=== PATIENT | male | born 1985 | race Hispanic/Latino ===

== ENCOUNTER 2022-07-01 11:28 | Emergency (ER) | payer SELFPAY ==
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
[2022-07-01] MEDS ORDERED: BUPIVACAINE 0.5% PF 10 ML VIAL ONE (11:48)
[2022-07-01] MEDS ORDERED: LIDOCAINE 1% 20 ML MDV ONE (11:48)
--- NOTE | 2022-07-01 12:33 | ER ---
Nurse's Notes [facility] Name: Samy Medrano Age: 36 yrs Sex: Male : 1985 Arrival Date: 07/01/2022 Time: 11:29 Bed 13 Private MD: Diagnosis: Cutaneous laceration of the thumb Presentation: 07/01 11:39 Chief complaint: Patient states: I was cutting sheet rock and sliced my finger with the jh5 sheet rock knife. Coronavirus screen: Vaccine status: Patient reports receiving the 2nd dose of the covid vaccine. Client denies travel out of the [place] in the last 14 days. Ebola Screen: Patient negative for fever greater than or equal to 101.5 degrees Fahrenheit, and additional compatible Ebola Virus Disease symptoms Patient denies exposure to infectious person. Patient denies travel to an Ebola-affected area in the 21 days before illness onset. Initial Sepsis Screen: Does the patient meet any 2 criteria? No. Patient's initial sepsis screen is negative. Does the patient have a suspected source of infection? No. Patient's initial sepsis screen is negative. Risk Assessment: Do you want to hurt yourself or someone else? Patient reports no desire to harm self or others. 11:39 Method Of Arrival: Ambulatory [facility] 11:39 Acuity: ALAN 3 jh5 Triage Assessment: 11:43 General: Appears in no apparent distress. uncomfortable, well groomed, well developed, [facility] Behavior is calm, cooperative, appropriate for age. Pain: Complains of pain in left hand. Musculoskeletal: Reports pain in left hand. Injury Description: Laceration. Historical: - Allergies: 11:43 No Known Allergies; 5 - Immunization history:: Adult Immunizations up to date. - Social history:: Smoking status: Patient denies any tobacco usage or history of. Screenin:45 [facility] ED Fall Risk Assessment (Adult) History of falling in the last 3 months, bp including since admission No falls in past 3 months (0 pts). Abuse screen: Denies threats or abuse. Denies injuries from another. Nutritional screening: No deficits noted. Tuberculosis screening: No symptoms or risk factors identified. Assessment: 11:45 General: SEE TRIAGE NOTE. bp 12:46 Reassessment: PT DC HOME. bp Vital Signs: 11:39 BP 149 / 77; Pulse 60; Resp 16; Temp 98.6; Pulse Ox 100% ; Weight 89.81 kg; Height 5 [facility] ft. 5 in. (165.10 cm); Pain 8/10; 12:46 BP 135 / 71; Pulse 67; Resp 16; Pulse Ox 99% ; bp 11:39 Body Mass Index 32.95 (89.81 kg, 165.10 cm) [facility] ED Course: 11:29 Patient arrived in ED. am2 11:30 Micheal Garcia PA is PHCP. [facility] 11:30 Zak Shah MD is Attending Physician. [facility] 11:38 Reinaldo Bryan, RN is Primary Nurse. bp 11:43 Triage completed. [facility] 11:45 Arm band placed on. bp 11:45 Patient has correct armband on for positive identification. Bed in low position. Call bp light in reach. Side rails up X2. 12:46 No provider procedures requiring assistance completed. Patient did not have IV access bp during this emergency room visit. Administered Medications: No medications were administered Medication: 11:45 VIS not applicable for this client. bp Outcome: 12:32 Discharge ordered by . [facility] 12:46 Discharged to home ambulatory. bp 12:46 Condition: stable 12:46 Discharge instructions given to patient, Instructed on discharge instructions, follow up and referral plans. medication usage, wound care, Demonstrated understanding of instructions, follow-up care, medications, wound care, Prescriptions given X 2. 12:48 Patient left the ED. bp Signatures: Micheal Garcia PA PA Bernice Lee am2 Reinaldo Bryan, RN RN bp Leena Perez, RN RN [facility]
--- NOTE | 2022-07-01 12:33 | EDPHYS ---
Physician Documentation [facility] Name: Samy Medrano Age: 36 yrs Sex: Male : 1985 Arrival Date: 07/01/2022 Time: 11:29 Bed 13 Private MD: ED Physician Zak Shah HPI: 07/01 12:30 This 36 yrs old Male presents to ER via Ambulatory with complaints of Thumb jmm Injury. 12:30 The patient or guardian reports injury. Onset: The symptoms/episode began/occurred jmm acutely, just prior to arrival. Is a 36-year-old male with no chronic medical conditions presents emerged part for laceration to left thumb. This occurred after accidentally cutting himself with a drywall knife. Patient is up-to-date on tetanus immunization. Denies other injury.. Historical: - Allergies: 11:43 No Known Allergies; [facility] - Immunization history:: Adult Immunizations up to date. - Social history:: Smoking status: Patient denies any tobacco usage or history of. ROS: 12:30 Constitutional: Negative for fever, chills, and weight loss, Cardiovascular: Negative jmm for chest pain, palpitations, and edema, Respiratory: Negative for shortness of breath, cough, wheezing, and pleuritic chest pain. 12:30 Skin: Positive for laceration(s). 12:30 All other systems are negative. Exam: 12:30 Constitutional: This is a well developed, well nourished patient who is awake, alert, jmm and in no acute distress. Head/Face: atraumatic. Eyes: EOMI, no conjunctival erythema appreciated ENT: Moist Mucus Membranes Neck: Trachea midline, Supple Chest/axilla: Normal chest wall appearance and motion. Cardiovascular: Regular rate and rhythm. No edema appreciated Respiratory: Normal respirations, no respiratory distress appreciated Abdomen/GI: Non distended Back: Normal ROM 12:30 Neuro: Awake and alert Psych: Behavior is normal, Mood is normal, Patient is cooperative and pleasant 12:30 Skin: 3 cm laceration noted to the left thumb. Vital Signs: 11:39 BP 149 / 77; Pulse 60; Resp 16; Temp 98.6; Pulse Ox 100% ; Weight 89.81 kg; Height 5 jh5 ft. 5 in. (165.10 cm); Pain 8/10; 12:46 BP 135 / 71; Pulse 67; Resp 16; Pulse Ox 99% ; bp 11:39 Body Mass Index 32.95 (89.81 kg, 165.10 cm) jh5 Laceration: 12:30 Wound Repair of 3cm ( 1.2in ) subcutaneous laceration to dorsal aspect of distal jmm phalanx of left thumb and dorsal aspect of proximal phalanx of left thumb. Distal neuro/vascular/tendon intact. Anesthesia: Local anesthetic administered with 4 mls of Lido/Marcaine. Wound prep: Simple cleansing with betadine by me. Skin closed with 9 5-0 Prolene using simple sutures and sterile technique. Patient tolerated well. MDM: 11:48 Patient medically screened. [facility] 12:31 Data reviewed: vital signs, nurses notes. I considered the following discharge [facility] prescriptions or medication management in the emergency department Medications were administered in the Emergency Department. See MAR. Counseling: I had a detailed discussion with the patient and/or guardian regarding: the historical points, exam findings, and any diagnostic results supporting the discharge/admit diagnosis, the need for outpatient follow up, to return to the emergency department if symptoms worsen or persist or if there are any questions or concerns that arise at home. 13:48 ED course: Patient given wound infection return precautions.. [facility] Administered Medications: No medications were administered Disposition: 16:18 Co-signature as Attending Physician, Zak Shah MD I reviewed the patient's care rt provided by the Advanced Practice Provider and agree with the diagnosis and treatment plan. Disposition Summary: 07/01/22 12:32 Discharge Ordered Location: Home [facility] Condition: Stable [facility] Diagnosis - Cutaneous laceration of the thumb [facility] Followup: [facility] - With: Private Physician - When: 10 - 14 days - Reason: Recheck today's complaints, Continuance of care, Staple/Suture removal, Re-evaluation by your physician Discharge Instructions: - Discharge Summary Sheet [facility] - Laceration Care, Adult [facility] Forms: - Medication Reconciliation Form [facility] - Thank You Letter [facility] - Antibiotic Education [facility] - Prescription Opioid Use [facility] Prescriptions: - Doxycycline Hyclate 100 mg Oral Tablet - take 1 tablet by ORAL route every 12 hours; 20 tablet; Refills: 0, Product [facility] Selection Permitted - Diclofenac Sodium 75 mg Oral Tablet Sustained Release - take 1 tablet by ORAL route 2 times per day; 30 tablet; Refills: 0, Product jmm Selection Permitted Signatures: Micheal Garcia PA PA jmm Rees, Jessica, RN RN jh5 Zak Shah MD MD rt
[2022-07-01 12:53] VITALS: TEMP 98.6
[2022-07-01 12:54] VITALS: BP 135/71; O2SAT 99
== END 2022-07-01 12:48 | disposition home or self-care (01) ==
LOC: ER 11:28
PROC: 0HQGXZZ Repair Left Hand Skin, External Approach (ICD-10-PCS; principal; 2022-07-01)
DX: S61.012A Laceration without foreign body of left thumb without damage to nail, initial encounter (principal)
CPT/HCPCS: 99282; J2001